=== PATIENT | female | born 2005 | race Caucasian/White ===

== ENCOUNTER 2023-05-04 09:07 | Inpatient (IN) | payer MEDICAID ==
[~2023-05-04] VITALS: Ht 165.1 cm; Wt 149.3 kg
--- NOTE | 2023-05-04 12:09 | NUR ---
ADMIT NOTE: Problem: Patient admitted to [facility] from [place] because patient reported that she does not feel safe to go home and has a plan to harm herself/ by suicide by overdosing or slitting her wrist. Patient saw her mother murdered 12 years ago and patient states that she has been depressed and suicidal. She has been mute since that time, although patient states that she spoke 6 days ago, and has spoken from time to time. Patient utilizes a writing board for communication.
[2023-05-04] MEDS ORDERED: acetaminophen 325mg tablet PO PRN (12:35)
[2023-05-04] MEDS ORDERED: magnesium hydroxide 30ml (MOM) UD suspension PO PRN (12:35)
[2023-05-04] MEDS ORDERED: loperamide 2mg capsule PO PRN (12:35)
[2023-05-04] MEDS ORDERED: mag hydrox/Alum hydrox/simeth 30ml oral suspension PO PRN (12:35)
[2023-05-04 12:57] VITALS: BP 114/78; PULSE 64; RESP 18; TEMP 97.4; O2SAT 96
[2023-05-04 15:08] VITALS: RESP 18; O2SAT 96
[2023-05-04] MEDS ORDERED: BREX1TAB PO (16:14)
[2023-05-04] MEDS ORDERED: CHOL500044 PO (16:14)
[2023-05-04] MEDS ORDERED: PRAZ1CAP5 PO (16:14)
[2023-05-04] MEDS ORDERED: SERT-434 PO (16:14)
[2023-05-04] MEDS: acetaminophen 325mg tablet PO PRN (18:18)
[2023-05-04 19:00] VITALS: BP 160/87; PULSE 79; RESP 16; O2SAT 97
[2023-05-04] MEDS ORDERED: hydrOXYzine 25 MG tablet PO PRN (20:20)
[2023-05-04] MEDS ORDERED: traZODone 50mg tablet PO PRN (20:20)
[2023-05-04] MEDS ORDERED: ibuprofen tablet 400 MG TABLET PO PRN (20:20)
[2023-05-04] MEDS: prazosin 1mg capsule PO SCH (20:40)
[2023-05-04] MEDS: ibuprofen 200mg tablet PO PRN (20:41)
--- NOTE | 2023-05-05 03:29 | NUR ---
RN PROGRESS NOTE: LEGAL HOLD: 5150 for DTS. PROBLEM: Patient admitted to [facility] from [place] because patient reported that she does not feel safe to go home and has a plan to harm herself/ by suicide by overdosing or slitting her wrist. Patient saw her mother murdered 12 years ago and patient states that she has been depressed and suicidal. She has been mute since that time, although patient states that she spoke 6 days ago, and has spoken from time to time. Patient utilizes a writing board for communication. INTERVENTIONS: 1:1 assessments, therapeutic environment. Admin meds. Q 15 min checks for safety. RESPONSE: Client was lying in bed at [facility]. She was cooperative with assessment, vital signs, and PM meds. Client did not speak or use the white board. She endorses suicidal ideation by nodding her head. She has a history of cutting that began at age 8. There are well healed scars on her left forearm. She has had prior suicide attempts. Client affirms she has difficulty sleeping and is anxious. Orders for 100 mg Trazodone Tab PO, 50 mg Atarax Tab PO for anxiety, and 600 mg Motrin Tab PO were obtained. She has a Hx of chronic back pain. Affect and mood are depressed. PLAN: Requires supportive environment and medication adjustment.
[2023-05-05 07:00] VITALS: BP 140/96; PULSE 78; RESP 18; TEMP 98; O2SAT 97
[2023-05-05] MEDS: cholecalciferol (vitamin D3) 1,000 unit (25mcg) tablet PO SCH (07:58)
[2023-05-05] MEDS: sertraline 50mg tablet PO SCH (07:58)
[2023-05-05 08:16] LABS: CHOL/HDL RATIO 4.9 (0.00-4.99); CHOLESTEROL 177 MG/DL (0-200); HDL CHOLESTEROL 36 MG/DL (35-60); LDL CHOLESTEROL 119 MG/DL (50-100); TRIGLYCERIDES 128 MG/DL (20-135)
[2023-05-05 08:25] LABS: HEMOGLOBIN A1C 5.3 % (4.5-6.2)
[2023-05-05] MEDS: acetaminophen 325mg tablet PO PRN ×2 (08:43→20:15)
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
--- NOTE | 2023-05-05 15:10 | NUR ---
RN PROGRESS NOTE: PROBLEM: Patient admitted to [facility] from [place] because patient reported that she does not feel safe to go home and has a plan to harm herself/ by suicide by overdosing or slitting her wrist. Patient saw her mother murdered 12 years ago and patient states that she has been depressed and suicidal. She has been mute since that time, although patient states that she spoke 6 days ago, and has spoken from time to time. Patient utilizes a writing board for communication. INTERVENTIONS: 1:1 morning assessment provided by [facility]. Medication administration/education/monitoring provided by AM nurse. Encouraged pt to come to lunch multiple times. Provided Q 15minute safety checks. RESPONSE: This nurse came on shift at 1300. Pt was in the BR and required multiple reminders to come to lunch. She ate lunch 100%. She is mute with this staff. She was observed up in the main room eating a snack at 1500 but then went right back to her room. Affect remains flat. Mood depressed. PLAN: Requires supportive environment and medication adjustment.
[2023-05-05] MEDS: ibuprofen 200mg tablet PO PRN (18:01)
[2023-05-05 19:49] VITALS: BP 132/78; PULSE 94; RESP 18; TEMP 98.7; O2SAT 98
[2023-05-05] MEDS: prazosin 1mg capsule PO SCH (20:14)
--- NOTE | 2023-05-06 04:51 | NUR ---
RN PROGRESS NOTE: PROBLEM: Patient admitted to [facility] from [place] because patient reported that she does not feel safe to go home and has a plan to harm herself/ by suicide by overdosing or slitting her wrist. Patient saw her mother murdered 12 years ago and patient states that she has been depressed and suicidal. She has been mute since that time, although patient states that she spoke 6 days ago, and has spoken from time to time. Patient utilizes a writing board for communication. INTERVENTIONS: Provided 1:1 assessment, medication administration/education/monitoring, Q 15minute safety checks. RESPONSE: Pt lying in bed listening to headphones at start of shift. During assessment pt communicated by way of writing on a dry erase board that she hears whispers but that they do not tell her to do anything. She also shakes her head yes to having suicidal ideations and a plan to do so that would be either taking pills or slit wrists. Pt denies AH and HI. Pt complained of back pain that she was given Tylenol for. Pt never left her room and was laying on her bed all night until bedtime. Every time pt communicated she did not speak but wrote her answers on the board. Pt was compliant with all of her medications and was agreeable with treatment. PLAN: Requires supportive environment and medication adjustment.
[2023-05-06 07:00] VITALS: RESP 16; O2SAT 96
[2023-05-06 07:54] VITALS: BP 130/70; PULSE 61; RESP 16; TEMP 97.9; O2SAT 96
[2023-05-06] MEDS: cholecalciferol (vitamin D3) 1,000 unit (25mcg) tablet PO SCH (08:18)
[2023-05-06] MEDS: sertraline 50mg tablet PO SCH (08:18)
[2023-05-06] MEDS: ibuprofen 200mg tablet PO PRN ×2 (08:19→20:08)
[2023-05-06] MEDS: acetaminophen 325mg tablet PO PRN (14:48)
--- NOTE | 2023-05-06 16:11 | NUR ---
RN PROGRESS NOTE: PROBLEM: Patient admitted to [facility] from [place] because patient reported that she does not feel safe to go home and has a plan to harm herself/ by suicide by overdosing or slitting her wrist. Patient saw her mother murdered 12 years ago and patient states that she has been depressed and suicidal. She has been mute since that time, although patient states that she spoke 6 days ago, and has spoken from time to time. Patient utilizes a writing board for communication. INTERVENTIONS: 1:1 assessment, establishment of rapport, therapeutic communication, medication administration/education/monitoring, ensured contract for safety, provided distraction, redirection, positive reinforcement, and Q15 min safety checks. RESPONSE: Pt was up for breakfast and cooperative with her medications. Pt did not speak today but communicated through writing. Pt c/o 7/10 low back pain and was given Motrin 600 mg at 0819 with good effect. Pt again c/o back pain in the afternoon and was given PRN Tylenol 650 mg at 1448 with good effect. Pt continues to endorse SI though has no plan. Pt is also experiencing AH that she describes as "just whispers" that she can't make out. Pt requested that this nurse get her glasses from her bag in her locker and they were provided. Pt colors and reads. Pt is frequently present in the milieu. PLAN: Pt in need of crisis interruption and stabilization with medication adjustment and monitoring in a safe and therapeutic environment until no longer a danger to herself.
[2023-05-06 19:30] VITALS: BP 119/77; PULSE 105; RESP 20; TEMP 98.1; O2SAT 95
[2023-05-06] MEDS: prazosin 1mg capsule PO SCH (20:08)
--- NOTE | 2023-05-07 04:22 | NUR ---
RN PROGRESS NOTE: PROBLEM: Patient admitted to [facility] from [place] because patient reported that she does not feel safe to go home and has a plan to harm herself/ by suicide by overdosing or slitting her wrist. Patient saw her mother murdered 12 years ago and patient states that she has been depressed and suicidal. She has been mute since that time, although patient states that she spoke 6 days ago, and has spoken from time to time. Patient utilizes a writing board for communication. INTERVENTIONS: Provided 1:1 assessment, medication administration/education/monitoring, Q 15minute safety checks. RESPONSE: Pt is withdrawn, still non-verbal. During assessment pt denies VH and HI, but states she is still hearing whispering and voices telling me to hurt myself. She communicates that she has SI and her plan to accomplish it would be slit wrists or OD. Pt communicates that she feels sad because of all the yelling today, as she refers to some kind of peer's outburst that happened on the unit today. She was compliant with all meds and received Motrin for 8 out of 10 back pain, which was effective in getting her to sleep. Pt was quiet and slept all night. PLAN: Requires supportive environment and medication adjustment
[2023-05-07 07:00] VITALS: RESP 14; O2SAT 98
[2023-05-07 08:00] VITALS: BP 136/77; PULSE 82; RESP 14; TEMP 97.8; O2SAT 98
[2023-05-07] MEDS: sertraline 50mg tablet PO SCH (08:23)
[2023-05-07] MEDS: cholecalciferol (vitamin D3) 1,000 unit (25mcg) tablet PO SCH (08:23)
[2023-05-07] MEDS: ibuprofen 200mg tablet PO PRN (08:24)
--- NOTE | 2023-05-07 17:14 | NUR ---
RN PROGRESS NOTE: PROBLEM: Patient admitted to [facility] from [place] because patient reported that she does not feel safe to go home and has a plan to harm herself/ by suicide by overdosing or slitting her wrist. Patient saw her mother murdered 12 years ago and patient states that she has been depressed and suicidal. She has been mute since that time, although patient states that she spoke 6 days ago, and has spoken from time to time. Patient utilizes a writing board for communication. INTERVENTIONS: 1:1 assessment, establishment of rapport, therapeutic communication, medication administration/education/monitoring, ensured contract for safety, provided distraction, redirection, positive reinforcement, and Q15 min safety checks. RESPONSE: Pt was up for breakfast and cooperative with her medications. Pt received a phone call. She silently took the phone back to her room. This nurse followed and overheard the patient having a full on phone conversation in her room. Pt was requesting that someone bring in some clothing and belongings of hers. Pt was nonverbal with this nurse. When asked how she was doing today, pt gave a thumbs up and smiled. When asked pt if she was hearing voices today, pt shook her head "no." PLAN: Pt in need of crisis interruption and stabilization with medication adjustment and monitoring in a safe and therapeutic environment until no longer a danger to herself.
[2023-05-07 19:00] VITALS: BP 138/81; PULSE 98; RESP 18; TEMP 99; O2SAT 98
[2023-05-07 19:30] VITALS: RESP 14
[2023-05-07] MEDS: prazosin 1mg capsule PO SCH (20:49)
[2023-05-07] MEDS: acetaminophen 325mg tablet PO PRN (20:51)
--- NOTE | 2023-05-08 05:21 | NUR ---
RN PROGRESS NOTE: PROBLEM: Patient admitted to [facility] from [place] because patient reported that she does not feel safe to go home and has a plan to harm herself/ by suicide by overdosing or slitting her wrist. Patient saw her mother murdered 12 years ago and patient states that she has been depressed and suicidal. She has been mute since that time, although patient states that she spoke 6 days ago, and has spoken from time to time. Patient utilizes a writing board for communication. INTERVENTIONS: Provided 1:1 assessment, medication administration/education/monitoring, Q 15minute safety checks. RESPONSE: Pt is withdrawn staying in her room the whole night. Pt is still non-verbal. When asked why she doesnt talk she writes on her board, Anxiety keeps me from talking, I talked twice today. When asked if she is have AVH she writes, Santos, ceiling, floor, beds, objects are breathing. I cant hear it but I can see it. She then further denies AH and also denies SI/HI. Pt complains of being dizzy and having back pain. Her BP is taken which was 146/85. She is given her evening meds and Tylenol for her pain and asked to be careful on changing positions due to her dizzy feeling. Pt was agreeable to all treatment and slept well through the night. PLAN: Requires supportive environment and medication adjustment.
[2023-05-08 07:00] VITALS: RESP 14; O2SAT 93
[2023-05-08 07:54] VITALS: BP 144/86; PULSE 99; RESP 14; TEMP 99.1; O2SAT 93
[2023-05-08] MEDS: sertraline 50mg tablet PO SCH (08:13)
[2023-05-08] MEDS: cholecalciferol (vitamin D3) 1,000 unit (25mcg) tablet PO SCH (08:13)
--- NOTE | 2023-05-08 09:01 | NUR ---
Initial: Pt admit DX MDD, anxiety, PTSD, and SI per EMR. Pt PO ~93% avg initial regular diet meals w/ occasional snacks meeting estimated needs. LBM 05/05 per EMR. No nutrition interventions at this time. Will continue to follow. Rec: 1. continue regular diet 2. bowel care per rx 3. weekly wt Addendum: 05/08/23 at [address] Amended: Links added.
[2023-05-08] MEDS: ibuprofen 200mg tablet PO PRN (09:20)
--- NOTE | 2023-05-08 17:37 | NUR ---
RN PROGRESS NOTE: PROBLEM: Patient admitted to [facility] from [place] because patient reported that she does not feel safe to go home and has a plan to harm herself/ by suicide by overdosing or slitting her wrist. Patient saw her mother murdered 12 years ago and patient states that she has been depressed and suicidal. She has been mute since that time, although patient states that she spoke 6 days ago, and has spoken from time to time. Patient utilizes a writing board for communication. INTERVENTIONS: 1:1 assessment, establishment of rapport, therapeutic communication, medication administration/education/monitoring, ensured contract for safety, provided distraction, redirection, positive reinforcement, and Q15 min safety checks. RESPONSE: Patient sleeping in bed at change of shift. Patient attends breakfast in the community room. Patient went back to her room and took a long nap. Patient up in the community room playing cards with peers, which is an improvement from self-isolating. Patients grandmother came for a visit today. Patient denies mental health symptoms. PLAN: Pt in need of crisis interruption and stabilization with medication adjustment and monitoring in a safe and therapeutic environment until no longer a danger to herself.
[2023-05-08 19:00] VITALS: BP 130/78; PULSE 99; RESP 16; TEMP 99.1; O2SAT 99
[2023-05-08] MEDS: acetaminophen 325mg tablet PO PRN (19:32)
[2023-05-08] MEDS: prazosin 1mg capsule PO SCH (21:03)
--- NOTE | 2023-05-09 00:54 | NUR ---
RN PROGRESS NOTE: PROBLEM: Patient admitted to [facility] from [place] because patient reported that she does not feel safe to go home and has a plan to harm herself/ by suicide by overdosing or slitting her wrist. Patient saw her mother murdered 12 years ago and patient states that she has been depressed and suicidal. She has been mute since that time, although patient states that she spoke 6 days ago, and has spoken from time to time. Patient utilizes a writing board for communication. INTERVENTIONS: 1:1 assessment, establishment of rapport, therapeutic communication, medication administration/education/monitoring, ensured contract for safety, provided distraction, redirection, positive reinforcement, and Q15 min safety checks. RESPONSE: Patient mostly remains in bed during shift. She is agreeable to interview but wants the light turned off. She uses writing board for communicating. She denies suicidal ideation at time of interview but states SI is the reason why she is here. She is aware that she has court tomorrow. She is concerned of how to get home because her grandmother doesnt drive. Pt is from [place]. She identifies 4 positive things to live for including her grandmother and pets. Her social life includes video chatting with her friends and playing Minecraft. She reports pain during shift to her lower back and accesses Tylenol with effectiveness. Pt requests multiple warm blankets during shift. She reports feeling of malaise. Pt is afebrile. PLAN: Pt in need of crisis interruption and stabilization with medication adjustment and monitoring in a safe and therapeutic environment until no longer a danger to herself.
[2023-05-09 07:00] VITALS: BP 152/97; PULSE 100; RESP 18; TEMP 98.4; O2SAT 93
[2023-05-09 08:00] VITALS: RESP 14; O2SAT 93
[2023-05-09] MEDS: cholecalciferol (vitamin D3) 1,000 unit (25mcg) tablet PO SCH (08:00)
[2023-05-09] MEDS: sertraline 50mg tablet PO SCH (08:00)
[2023-05-09] MEDS ORDERED: BREX1TAB PO (13:08)
[2023-05-09] MEDS ORDERED: HYDR-3686 PO (13:08)
[2023-05-09] MEDS ORDERED: PRAZ1CAP5 PO (13:08)
[2023-05-09] MEDS ORDERED: SERT-434 PO (13:08)
[2023-05-09] MEDS ORDERED: TRAZ-251 PO (13:08)
--- NOTE | 2023-05-09 18:01 | NUR ---
Patient discharged back to [facility].
== END 2023-05-09 18:04 | DRG 751 ==
LOC: ADULT MH 12:25
PROVIDERS: ADMIT Psychiatry & Neurology Psychiatry; ATTEND Psychiatry & Neurology Psychiatry
DX: F33.2 Major depressive disorder, recurrent severe without psychotic features (principal); R45.851 Suicidal ideations; F12.90 Cannabis use, unspecified, uncomplicated; F17.210 Nicotine dependence, cigarettes, uncomplicated; F94.0 Selective mutism; F43.10 Post-traumatic stress disorder, unspecified; M54.50 Low back pain, unspecified; Z91.52 Personal history of nonsuicidal self-harm; Z81.8 Family history of other mental and behavioral disorders; Z91.51 Personal history of suicidal behavior; Z56.0 Unemployment, unspecified; F41.9 Anxiety disorder, unspecified
CPT/HCPCS: 36415; 80061; 83036; 84443; 87081